=== PATIENT | female | born 1995 | race Caucasian/White ===

== ENCOUNTER 2017-01-06 11:37 | Emergency (ER) | payer MEDICAID, OTHER ==
[~2017-01-06] VITALS: Ht 177.8 cm; Wt 80.0 kg
[~2017-01-06 11:37] MED LIST: ADDE20 PO; NAPR500 PO; TRI-TAB PO; ZOFR4TAB3 SL
[2017-01-06 11:39] VITALS: BP 158/63; PULSE 75; RESP 16; TEMP 98.2; O2SAT 99
--- NOTE | 2017-01-06 11:43 | PD ---
HPI . left ankle pain Chief Complaint: Injury Time Seen by Provider: 11:43 Travel History International Travel<30 days: No Contact w/Intl Traveler<30days: No Traveled to known affect area: No History of Present Illness HPI 21-year-old female here with complaints of left ankle pain ever since yesterday. Patient tells me that she twisted her ankle and she's had some difficulty walking. She is wanting to know if she can get a brace of some sort. She tells me she is almost certain that she did not have any type of fracture. There is no swelling or discoloration. She is able to bear weight, but it hurts with ambulation. No other complaints PFSH Past Medical History ADHD: No Bipolar Disorder: Yes Cancer: No Cardiovascular Problems: No Diabetes: No Diminished Hearing: No Psychiatric: Yes (ODD) Immunizations Current: Yes Migraines: No Seizures: No Thyroid Disease: No Ulcer: No ?: Not Past Surgical History Other Surgery: No Social History Alcohol Use: Yes (socially) Tobacco Use: No Substance Use: No Allergies-Medications (Allergen,Severity, Reaction): Coded Allergies: No Known Allergies (Verified , 04/20/16) Reported Meds & Prescriptions Reported Meds & Active Scripts Active Reported Trinessa (Norgestimate-Ethinyl Estradiol) 0.18/0.215/0.25 mg-35 Mcg Tab 1 Tab PO DAILY Reglan (Metoclopramide HCl) 10 Mg Tab 10 Mg PO QID Celexa (Citalopram Hydrobromide) 10 Mg Tab 10 Mg PO DAILY Review of Systems General / Constitutional: No: Fever Eyes: No: Visual changes HENT: No: Headaches Cardiovascular: No: Chest Pain or Discomfort Respiratory: No: Shortness of Breath Gastrointestinal: No: Abdominal Pain Genitourinary: No: Dysuria Musculoskeletal: Positive: Pain (left ankle pain ) Skin: No Rash Neurologic: No: Weakness Psychiatric: No: Depression Endocrine: No: Polydipsia Hematologic/Lymphatic: No: Easy Bruising Physical Exam Narrative GENERAL: AAO x 3, no acute distress, Well-nourished, well-developed patient. SKIN: Warm and dry. No visible rashes or bruising. HEAD: Normocephalic and atraumatic. EYES: No scleral icterus. No injection or drainage. ENT: No nasal drainage noted. Mucous membranes pink. Airway patent. NECK: Supple, trachea midline. No JVD. CARDIOVASCULAR: Regular rate and rhythm without murmurs, gallops, or rubs. RESPIRATORY: Breath sounds equal bilaterally. No accessory muscle use. No rhonchi or rales. GASTROINTESTINAL: Abdomen soft, non-tender, nondistended. EXTREMITIES: No cyanosis or edema. no edema to left ankle, no discoloration, dorsi and plantar flexion normal. Strength is normal. There is some slight pain elicited with movement, but ankle moves normal and freely BACK: Nontender without obvious deformity. No CVA tenderness. NEURO: CN II-12 intact, PSYCH: AAO x 3, normal affect. Data Data Last Documented VS Vital Signs Date Time Temp Pulse Resp B/P (MAP) Pulse Ox O2 Delivery O2 Flow Rate FiO2 01/06/17 11:39 98.2 75 16 158/63 (94) 99 Orders Orders Marlon Bandage (01/06/17 11:45) Crutches (01/06/17 11:45) MDM Medical Decision Making Medical Screen Exam Complete: Yes Emergency Medical Condition: Yes Medical Record Reviewed: Yes Differential Diagnosis ankle sprain, less likely fracture, less likely Achilles tendon rupture Narrative Course 21-year-old female here with what appears to be a possible sprain of her ankle. Marlon wrap and crutches provided. No imaging as patient does not meet criteria per [facility] ankle rules. There is also no edema or discoloration. There is no evidence of fracture. I do not suspect a bony injury. I recommend [id number] ibuprofen and ice. Diagnosis Primary Impression: Ankle pain, left Qualified Codes: M25.572 - Pain in left ankle and joints of left foot Patient Instructions: General Instructions Additional Instructions: Please return to emergency department if your symptoms return or worsen. Follow up with your primary care provider. Take medications as prescribed. Rest the affected area as much as possible. Ice this area for 15-20 minutes at a time. You can do this every hour or as much as tolerated. Keep this area compressed (marlon bandage) as tolerated. Elevate this area. Use ibuprofen as needed for pain and inflammation. Med/Other Pt SpecificInfo: No Change to Meds Disposition: 01 DISCHARGE HOME Condition: Stable Trang Serrano Jan 06, 2017 11:43
[2017-01-06] MEDS ORDERED: CELE10TA PO (11:46)
[2017-01-06] MEDS ORDERED: REGL10TA5 PO (11:46)
[2017-01-06] MEDS ORDERED: TRINTAB7 PO (11:46)
[2017-02-20] MEDS ORDERED: TRINTAB7 PO ×2 (16:20→16:24)
== END 2017-01-06 12:17 | disposition home or self-care (01) ==
LOC: NEPD 11:37
DX: M25.572 Pain in left ankle and joints of left foot (principal)
CPT/HCPCS: 99282; E0113

== ENCOUNTER 2017-05-02 15:11 | Emergency (ER) | payer OTHER ==
[~2017-05-02] VITALS: Ht 177.8 cm; Wt 84.1 kg
[~2017-05-02 15:11] MED LIST changes: -ADDE20 PO; +CELE10TA PO; -NAPR500 PO; +REGL10TA5 PO; -TRI-TAB PO; +TRINTAB7 PO; -ZOFR4TAB3 SL
[2017-05-02 15:13] VITALS: BP 136/97; PULSE 79; RESP 26; TEMP 98.6; O2SAT 100
[2017-05-02] MEDS ORDERED: METHY10 PO (15:33)
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
[2017-05-02] MEDS ORDERED: KETOROLAC TROMETHAMINE 60 MG/2 ML (IM) VIAL IM ONE (16:15)
[2017-05-02] MEDS ORDERED: ORPHENADRINE INJ 60 MG/2 ML AMP IM ONE (16:15)
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
[2017-05-02] MEDS ORDERED: IBUP1TAB7 PO (18:09)
[2017-05-02] MEDS ORDERED: ROBA500T PO (18:09)
== END 2017-05-02 18:29 | disposition home or self-care (01) ==
LOC: NEPD 15:11
DX: M54.9 Dorsalgia, unspecified (principal); S39.012A Strain of muscle, fascia and tendon of lower back, initial encounter; S16.1XXA Strain of muscle, fascia and tendon at neck level, initial encounter; V49.49XA Driver injured in collision with other motor vehicles in traffic accident, initial encounter; Z72.0 Tobacco use
CPT/HCPCS: 72125; 72128; 72131; 84703; 96372; 99285; J1885; J2360